=== PATIENT | female | born 1970 | race Caucasian/White ===

== ENCOUNTER 2019-10-14 11:12 | Outpatient (CLI) | payer MEDICARE, MEDICAID ==
--- NOTE | 2019-10-14 13:07 | CT ---
CT ABDOMEN AND PELVIS WITH IV CONTRAST 10/14/2019 CLINICAL INFORMATION: Anemia, right upper quadrant abdominal pain. COMPARISON: Noncontrast CT abdomen and pelvis on 06/20/2018 Technique: Multiple contiguous axial CT images are obtained through the abdomen and pelvis with IV contrast. Cor onal reformatted images are provided. FINDINGS: Lower Chest: Minimal atelectasis is present in the lingula. Lung bases are otherwise clear. Vessels: Vascular calcifications are seen in the abdominal aorta and in the iliac arteries. Abdomen: Portal vein:Patent Gallbladder: Surgically absent. Liver: within normal limits. Spleen: within normal limits. Pancreas: within normal limits. Adrenals: within normal limits. Kidneys: A 3 mm nonobstructing inferior pole right renal calculus is present. Mild nonspecific caliec tasis is present on the right without overt hydronephrosis. Bowel: Small amount of retained fecal material seen throughout the colon. Loops of small bowel are no rmal in caliber. Appendix: Not visualized. Patient reports history of prior appendectomy. Peritoneum: No ascites or free air; no fluid collection. Mesentery and Retroperitoneum: No enlarged mesenteric or retroperitoneal lymph nodes. Abdominal Wall: within normal limits. Pelvis: Reproductive Organs: Evidence of hysterectomy. Pelvis within normal limits. Bladder: Incompletely distended but grossly within normal limits. Bones: Postoperative changes lumbar spine with evidence of posterior fusion at the lumbosacral juncti on. IMPRESSION: 1. Nonobstructing inferior pole right renal calculus. 2. No acute findings are seen in the abdomen or pelvis.
== END 2019-10-14 11:13 | disposition home or self-care (01) ==
LOC: SCSCT 11:12
PROVIDERS: ATTEND Internal Medicine Gastroenterology
DX: R10.9 Unspecified abdominal pain (principal); N20.0 Calculus of kidney
CPT/HCPCS: 74177